=== PATIENT | male | born 1970 | race Caucasian/White ===

== ENCOUNTER 2019-12-01 15:05 | Emergency (ER) | payer OTHER, MEDICAID ==
[~2019-12-01] VITALS: Ht 170.2 cm; Wt 70.8 kg
[2019-12-01 15:05] VITALS: BP_SYST 179
--- NOTE | 2019-12-01 15:05 | NUR ---
BROUGHT IN BY [facility], TO [facility], TRIAGED. REPORT GIVEN TO JACKELINE
--- NOTE | 2019-12-01 16:10 | NUR ---
Dr. Metz at bedside for examination.
--- NOTE | 2019-12-01 17:16 | NUR ---
Patient brought self to ED with c/o left forearm fracture x 2 days ago. Patient reported pain 8/10 on affected site. Patient presented drowsy and is resting at this time. Patient in no signs of distress.
[2019-12-01 17:39] LABS: HEMOGLOBIN 8.8 g/dL (14.0-18.0); MEAN CORPUSCULAR HGB CONC 33 % (32-36); MONOCYTES # (AUTO) 0.4 K/uL (0.0-1.0); PLATELET COUNT (AUTO) 103 K/uL (130-430); RED BLOOD CELL COUNT(AUTO) 2.49 MIL/uL (4.2-6.2); WHITE BLOOD COUNT (AUTO) 4.9 K/uL (4.8-10.8)
[2019-12-01 17:44] LABS: BASOPHILS # (AUTO) 0.1 K/uL (0.0-0.2); BASOPHILS % (AUTO) 1.3 % (0.0-2.0); EOSINOPHILS % (AUTO) 0.4 % (0.0-4.0); HEMATOCRIT 26.5 % (36-54); LYMPHOCYTES # (AUTO) 0.8 K/uL (1.0-5.5); LYMPHOCYTES % (AUTO) 16.6 % (20.5-51.5); MEAN CORPUSCULAR HEMOGLOBIN 35 pg (27-31); MEAN CORPUSCULAR VOLUME 107 fL (79.0-98.0); MONOCYTES % (AUTO) 8.6 % (1.7-9.3); NEUTROPHILS # (AUTO) 3.6 K/uL (1.8-7.7); NEUTROPHILS % (AUTO) 73.1 % (40.0-70.0); RED CELL DISTRIBUTION WIDTH 16.2 % (9.0-15.0)
[2019-12-01 17:47] LABS: CREATININE 5.59 mg/dL (0.55-1.30); POTASSIUM 4.2 mmol/L (3.5-5.1)
[2019-12-01 17:52] LABS: ALBUMIN 2.7 g/dL (3.4-4.8); TOTAL BILIRUBIN 0.7 mg/dL (0.0-1.0)
[2019-12-01] MEDS ORDERED: HYDROcodone/ACETAMIN 5-325 MG TAB (NORCO/ VICODIN) PO ONE (18:15)
--- NOTE | 2019-12-01 18:42 | NUR ---
Report given to Elizabeth at [facility].
[2019-12-01 18:50] VITALS: BP_SYST 142
--- NOTE | 2019-12-01 18:50 | NUR ---
Patient given written and verbal discharge instructions and verbalizes understanding. ER MD discussed with patient the results and treatment provided. Patient in stable condition. ID arm band removed. Patient educated on pain management and to follow up with PMD. Pain Scale 0/10.Opportunity for questions provided and answered. Medication side effect fact sheet provided.
== END 2019-12-01 18:50 | disposition home or self-care (01) ==
LOC: SED 15:05
DX: M79.642 Pain in left hand (principal); E11.29 Type 2 diabetes mellitus with other diabetic kidney complication; N28.9 Disorder of kidney and ureter, unspecified; Z88.8 Allergy status to other drugs, medicaments and biological substances
CPT/HCPCS: 36415; 80053; 82140-TC; 85025; 99283

== ENCOUNTER 2019-12-04 15:35 | Emergency (ER) | payer OTHER, MEDICAID ==
[~2019-12-04] VITALS: Ht 170.2 cm; Wt 66.2 kg
[2019-12-04 15:38] VITALS: BP_SYST 133
[2019-12-04 17:40] LABS: BASOPHILS % (AUTO) 0.7 % (0.0-2.0); EOSINOPHILS # (AUTO) 0.1 K/uL (0.0-0.4); EOSINOPHILS % (AUTO) 1.7 % (0.0-4.0); HEMATOCRIT 31.7 % (36-54); HEMOGLOBIN 10.8 g/dL (14.0-18.0); LYMPHOCYTES # (AUTO) 0.6 K/uL (1.0-5.5); LYMPHOCYTES % (AUTO) 15.2 % (20.5-51.5); MEAN CORPUSCULAR HEMOGLOBIN 36 pg (27-31); MEAN CORPUSCULAR HGB CONC 34 % (32-36); MEAN CORPUSCULAR VOLUME 107 fL (79.0-98.0); MONOCYTES # (AUTO) 0.2 K/uL (0.0-1.0); MONOCYTES % (AUTO) 5.7 % (1.7-9.3); NEUTROPHILS # (AUTO) 3.2 K/uL (1.8-7.7); NEUTROPHILS % (AUTO) 76.7 % (40.0-70.0); PLATELET COUNT (AUTO) 229 K/uL (130-430); RED BLOOD CELL COUNT(AUTO) 2.97 MIL/uL (4.2-6.2); RED CELL DISTRIBUTION WIDTH 16.8 % (9.0-15.0); WHITE BLOOD COUNT (AUTO) 4.2 K/uL (4.8-10.8)
[2019-12-04 17:55] LABS: CALCIUM 8.4 mg/dL (8.4-11.0); CREATININE 6.33 mg/dL (0.55-1.30); POTASSIUM 3.8 mmol/L (3.5-5.1)
[2019-12-04 19:20] VITALS: BP_SYST 163
== END 2019-12-04 19:20 | disposition home or self-care (01) ==
LOC: SED 15:35
DX: S52.502A Unspecified fracture of the lower end of left radius, initial encounter for closed fracture (principal); E07.9 Disorder of thyroid, unspecified; I11.0 Hypertensive heart disease with heart failure; I50.9 Heart failure, unspecified; E11.29 Type 2 diabetes mellitus with other diabetic kidney complication; N28.9 Disorder of kidney and ureter, unspecified; Z86.79 Personal history of other diseases of the circulatory system; Z86.73 Personal history of transient ischemic attack (TIA), and cerebral infarction without residual deficits; Z86.2 Personal history of diseases of the blood and blood-forming organs and certain disorders involving the immune mechanism; Z88.8 Allergy status to other drugs, medicaments and biological substances; X58.XXXA Exposure to other specified factors, initial encounter; Y93.89 Activity, other specified; Y92.89 Other specified places as the place of occurrence of the external cause; Y99.8 Other external cause status
CPT/HCPCS: 36415; 80048; 85025; 99284

== ENCOUNTER 2020-01-18 08:12 | Inpatient (IN) | payer OTHER, MEDICAID, SELFPAY ==
[~2020-01-18] VITALS: Ht 170.2 cm; Wt 54.9 kg
[2020-01-18 08:12] VITALS: BP_SYST 163
[2020-01-18] MEDS ORDERED: PANTOPRAZOLE SODIUM 40 MG/VIAL (PROTONIX) IVP ONE (08:45)
[2020-01-18] MEDS ORDERED: LABE300T3 PO (09:23)
[2020-01-18] MEDS ORDERED: LEVO25TA2 PO (09:23)
[2020-01-18] MEDS ORDERED: KLO1 PO (09:23)
[2020-01-18] MEDS ORDERED: HYDR100T25 PO (09:23)
[2020-01-18] MEDS ORDERED: LISI10TA5 PO (09:30)
[2020-01-18] MEDS ORDERED: ZIPR80CA23 PO (09:30)
[2020-01-18] MEDS ORDERED: ASPI-1153 PO (09:30)
[2020-01-18 09:44] LABS: BASOPHILS # (AUTO) 0.1 K/uL (0.0-0.2); BASOPHILS % (AUTO) 1.1 % (0.0-2.0); EOSINOPHILS # (AUTO) 0.1 K/uL (0.0-0.4); EOSINOPHILS % (AUTO) 1.2 % (0.0-4.0); HEMATOCRIT 28.6 % (36-54); HEMOGLOBIN 9.6 g/dL (14.0-18.0); LYMPHOCYTES # (AUTO) 0.3 K/uL (1.0-5.5); LYMPHOCYTES % (AUTO) 6.4 % (20.5-51.5); MEAN CORPUSCULAR HEMOGLOBIN 36 pg (27-31); MEAN CORPUSCULAR HGB CONC 34 % (32-36); MEAN CORPUSCULAR VOLUME 109 fL (79.0-98.0); MONOCYTES # (AUTO) 0.3 K/uL (0.0-1.0); MONOCYTES % (AUTO) 6.1 % (1.7-9.3); NEUTROPHILS # (AUTO) 4.3 K/uL (1.8-7.7); NEUTROPHILS % (AUTO) 85.2 % (40.0-70.0); PLATELET COUNT (AUTO) 116 K/uL (130-430); RED BLOOD CELL COUNT(AUTO) 2.63 MIL/uL (4.2-6.2); RED CELL DISTRIBUTION WIDTH 15.7 % (9.0-15.0); WHITE BLOOD COUNT (AUTO) 5.1 K/uL (4.8-10.8)
[2020-01-18] MEDS ORDERED: FUROSEMIDE 40 MG/4 ML VIAL IVP ONE (10:00)
[2020-01-18] MEDS ORDERED: LEVOFLOXACIN 500 MG/D5W 100 ML IV ONE (10:00)
[2020-01-18] MEDS ORDERED: IPRATROPIUM BROM 0.5 MG/2.5 ML VIAL.NEB (ATROVENT) INH ONE (10:01)
[2020-01-18] MEDS ORDERED: ALBUTEROL SULFATE 0.083% 2.5 MG/3 ML VIAL.NEB INH ONE (10:01)
[2020-01-18 10:03] LABS: INR 1.1 (0.80-1.20); PROTHROMBIN TIME 11.1 SECS (9.5-12.5)
[2020-01-18 10:22] LABS: ANION GAP 7 (5-15); CALCIUM 8.3 mg/dL (8.4-11.0); CHLORIDE 95 mmol/L (98-107); CREATININE 6.43 mg/dL (0.55-1.30); GLUCOSE 87 mg/dL (70-99); POTASSIUM 3.7 mmol/L (3.5-5.1); SODIUM SERUM 140 mmol/L (136-145); UREA NITROGEN, BLOOD 37 mg/dL (8-21)
[2020-01-18 10:23] LABS: GFR AFRICAN AMERICAN 12 mL/min (>90)
[2020-01-18 10:38] LABS: ALANINE AMINOTRANSFERASE 13 U/L (12-78); ALBUMIN 2.6 g/dL (3.4-4.8); ASPARTATE AMINOTRANSFERASE 15 U/L (10-37); FREE T4 (FREE THYROXINE) 0.6 ng/dL (0.6-1.6); TOTAL BILIRUBIN 0.8 mg/dL (0.0-1.0); VALPROIC ACID 68 ug/mL (50-100)
[2020-01-18 10:48] LABS: ALCOHOL, BLOOD < 3 mg/dL (<10)
[2020-01-18] MEDS ORDERED: BUMETANIDE 0.25 MG/ML; 10 ML VIAL IVP ONE (11:00)
[2020-01-18] MEDS ORDERED: BUMEX 1 MG/4 ML VIAL IVP ONE (11:00)
[2020-01-18 20:04] VITALS: BP_SYST 176
[2020-01-18] MEDS ORDERED: cloNIDine HCL 0.2 MG TABLET PO PRN (21:30)
[2020-01-19 00:45] VITALS: BP_SYST 153
[2020-01-19] MEDS ORDERED: LISINOPRIL 10 MG TABLET (PRINIVIL) PO SCH (02:45)
[2020-01-19] MEDS ORDERED: NICOTINE 21 MG/24 HR PATCH.TD24 TD SCH (03:00)
[2020-01-19] MEDS ORDERED: PIPERACILLIN/TAZO 2.25G/DEX-IS 50 ML IV SCH (06:00)
[2020-01-19] MEDS ORDERED: LABETALOL HCL 100 MG TABLET PO SCH (06:00)
[2020-01-19] MEDS ORDERED: PIPERACILLIN/TAZOBACTAM 2.25 GM VIAL IV ONE (06:37)
[2020-01-19] MEDS ORDERED: LEVOTHYROXINE SODIUM 0.025 MG TABLET PO SCH (07:00)
[2020-01-19] MEDS ORDERED: SODIUM BICARBONATE 8.4% JECT 50 MEQ/50 ML SYRINGE IVP ONE (07:31)
[2020-01-19] MEDS ORDERED: CALCIUM CHLORIDE 1 GM/10 ML DISP.SYRIN (14 mEq Ca++/SYR) IV ONE (07:31)
[2020-01-19] MEDS ORDERED: EPINEPHrine JECT 0.1 MG/ML SYR IVP ONE (07:31)
[2020-01-19] MEDS ORDERED: clonazePAM 0.5 MG TABLET PO SCH (09:00)
[2020-01-19] MEDS ORDERED: ASPIRIN 81 MG TABLET(ECOTRIN) PO SCH (09:00)
[2020-01-19] MEDS ORDERED: hydrALAZINE HCL 25 MG TABLET PO SCH (09:00)
[2020-01-19] MEDS ORDERED: DOXYCYCLINE HYCLATE 100 MG CAPSULE PO SCH (09:00)
[2020-01-19] MEDS ORDERED: ZIPRASIDONE HCL 20 MG CAPSULE (GEODON) PO SCH (09:00)
== END 2020-01-19 07:32 | disposition expired | DRG 377 ==
LOC: SED 08:12 → STU 12:26
PROVIDERS: ADMIT Internal Medicine Infectious Disease; ATTEND Internal Medicine Infectious Disease
DX: K92.2 Gastrointestinal hemorrhage, unspecified (principal); J69.0 Pneumonitis due to inhalation of food and vomit; I13.2 Hypertensive heart and chronic kidney disease with heart failure and with stage 5 chronic kidney disease, or end stage renal disease; N18.5 Chronic kidney disease, stage 5; Z99.2 Dependence on renal dialysis; D63.8 Anemia in other chronic diseases classified elsewhere; E03.9 Hypothyroidism, unspecified; Z20.828 Contact with and (suspected) exposure to other viral communicable diseases; E11.22 Type 2 diabetes mellitus with diabetic chronic kidney disease; G40.909 Epilepsy, unspecified, not intractable, without status epilepticus; F20.9 Schizophrenia, unspecified; I50.9 Heart failure, unspecified; Z88.8 Allergy status to other drugs, medicaments and biological substances; Z86.73 Personal history of transient ischemic attack (TIA), and cerebral infarction without residual deficits; Z79.899 Other long term (current) drug therapy
CPT/HCPCS: 36415; 36600; 71045; 74018; 80053; 80164-TC; 82140-TC; 82803-TC; 82962; 83605; 83880; 84439; 84484; 85025; 85610-TC; 86710; 87040-TC; 87081; 94640; 96365; 96375; 99285; C9113; G0378; G0482; J0171; J1940; J1956; J2543; J3490; J7030; J7613